=== PATIENT | female | born 1990 | race Caucasian/White ===

== ENCOUNTER 2018-03-06 22:39 | Emergency (ER) | payer OTHER ==
[2018-03-06 22:57] VITALS: RESP 18
[2018-03-06] MEDS ORDERED: PROPARACAINE/FLUORESCEIN SOD 100 DROP/5 ML BOTTLE OD STA (23:15)
[2018-03-06] MEDS ORDERED: PROPARACAINE/FLUORESCEIN SOD 100 DROP/5 ML BOTTLE ONE (23:26)
--- NOTE | 2018-03-06 23:29 | ED PDOC ---
HPI: Eye Injury/Pain Time Seen by Provider: 03/06/18 23:05 Chief Complaint (Nursing): Eye Problem Chief Complaint (Provider): RIGHT EYE PAIN History Per: Patient (27 Y/O FEMALE WHO AWOKE 3 DAYS AGO WITH RED EYE WITH YELLOWISH DISCHARGE. WAS SEEN BY EYE DR AND HAD RX FOR ERYTHROMYCIN OINTMENT WITHOUT IMPROVEMENT. NOTES SUDDEN WORSENING OF PAIN RECENTLY AND IS CONCERNED THAT SHE MAY HAVE CORNEAL ABRASION. PATIENT HAS A H/O CORNEAL ABRASION RIGHT LOWER EYE 3 YEARS AGO AND HAS HAD RECENT SX 6 WEEKS AGO FOR REPEAT NONHEALING ABRASION. STATES SHE HAD "HOLES PLACED IN EYE" TO ALLOW HEALING.) Past Medical History Reviewed: Historical Data, Nursing Documentation, Vital Signs Vital Signs: Last Vital Signs Temp 98.4 F 03/06/18 22:53 Pulse 66 03/06/18 22:53 Resp 18 03/06/18 22:53 BP 133/84 03/06/18 22:53 Pulse Ox 98 03/06/18 22:53 - Family History Family History: States: No Known Family Hx - Home Medications Home Medications: Ambulatory Orders Medication Instructions Recorded Ibuprofen [Motrin] 600 mg PO Q8 PRN #21 tab 03/07/18 Tobramycin 0.3% [Tobrex 0.3% Ophth 0.5 inch OD BID #1 tube 03/07/18 Oint] oxyCODONE/Acetaminophen [Percocet 1 ea PO Q6 PRN #4 tab 03/07/18 5/325 mg Tab] - Allergies Allergies/Adverse Reactions: Allergies Allergy/AdvReac Type Severity Reaction Status Date / Time No Known Allergies Allergy Verified 03/06/18 23:15 Review of Systems ROS Statement: Except As Marked, All Systems Reviewed And Found Negative Physical Exam - Reviewed Nursing Documentation Reviewed: Yes Vital Signs Reviewed: Yes (UNABLE TO READ EYE CHART) - Physical Exam Appears: Positive for: Well, Non-toxic, No Acute Distress Head Exam: Positive for: ATRAUMATIC, NORMAL INSPECTION, NORMOCEPHALIC Skin: Positive for: Normal Color, Warm, DRY Eye Exam: Positive for: EOMI, PERRL, Conjunctival injection (MODERATE CONJUNCTIVAL INJECTION; PUPIL CONSTRICTED RIGHT EYE.), Other (FLUORESCEIN UPTAKE NOTED MEDIAL LOWER PORTION OF RIGHT EYE; NO PUNCTATE LESIONS NOTED.). Negative for: Normal appearance ENT: Positive for: Normal ENT Inspection Neck: Positive for: Normal, Painless ROM Cardiovascular/Chest: Positive for: Regular Rate, Rhythm Respiratory: Positive for: CNT, Normal Breath Sounds Gastrointestinal/Abdominal: Positive for: Normal Exam, Soft Back: Positive for: Normal Inspection Extremity: Positive for: Normal ROM Neurologic/Psych: Positive for: Alert, Oriented - ECG O2 Sat by Pulse Oximetry: 98 - Progress ED Course And Treament: D/W DR. BROWNING. ADVISES OINTMENT IN RIGHT EYE AND TO SEE HIM IN OFFICE AT 9AM thursday Disposition - Clinical Impression Clinical Impression: Corneal abrasion - Patient ED Disposition Is Patient to be Admitted: No - Disposition Referrals: Alan Browning MD [Staff Provider] - Disposition: Routine/Home Disposition Time: 23:53 Condition: FAIR Prescriptions: Ibuprofen [Motrin] 600 mg PO Q8 PRN #21 tab PRN Reason: Pain, Severe (8-10) oxyCODONE/Acetaminophen [Percocet 5/325 mg Tab] 1 ea PO Q6 PRN #4 tab PRN Reason: Pain, Severe (8-10) Tobramycin 0.3% [Tobrex 0.3% Ophth Oint] 0.5 inch OD BID #1 tube Instructions: Corneal Abrasion (DC) Forms: [facility] ([place]o), [facility] ED School/Work Excuse
[2018-03-06] MEDS ORDERED: Tobramycin/Dexamethasone OPHT OINT OD STA (23:48)
[2018-03-06] MEDS ORDERED: Tobramycin 0.3% OPH OINT OD STA (23:49)
[2018-03-07 00:11] VITALS: BP 118/78; PULSE 78; TEMP 98
[2018-03-07 00:15] VITALS: O2SAT 98
== END 2018-03-07 00:40 | disposition home or self-care (01) ==
LOC: H.ER 22:39
DX: S05.01XA Injury of conjunctiva and corneal abrasion without foreign body, right eye, initial encounter (principal); Y92.89 Other specified places as the place of occurrence of the external cause